=== PATIENT | female | born 1940 | race African-American/Black ===

== ENCOUNTER 2018-03-10 11:16 | Day surgery (SDC) | payer OTHER, BC ==
[~2018-03-10] VITALS: Ht 175.3 cm; Wt 68.1 kg
[~2018-03-10 11:16] MED LIST: ALREX 0.2%100 DROP/5 BOTH EYES; ANTIVERT25 MG PO; APRESOLINE50 MG PO; ARANESP150 MCG/0. SC; ASPIR 8181 M1 PO; CELEXA20 MG PO; COLACE100 MG PO; COREG12.5 M1 PO; DITROPAN5 MG PO; ESSENTIAL OIL; FLONASE ALLERG9.9 ML BOTH NARES; ISOSORBIDE DINI20 MG PO; LASIX40 MG PO; LEVOXYL50 MCG PO; NEXIUM20 MG PO; PROCARDIA XL30 MG PO; ROCALTROL0.25 MCG PO; ZOCOR20 MG PO; ZYLOPRIM100 MG PO
[2018-03-10] MEDS ORDERED: VITAMIN D22000 UNIT PO (12:15)
[2018-03-10 12:21] VITALS: BP 140/71
[2018-03-10 15:37] VITALS: BP 153/75
== END 2018-03-10 16:00 | disposition home or self-care (01) ==
LOC: SDC 11:16
DX: H33.22 Serous retinal detachment, left eye (principal); I12.9 Hypertensive chronic kidney disease with stage 1 through stage 4 chronic kidney disease, or unspecified chronic kidney disease; N18.4 Chronic kidney disease, stage 4 (severe); D63.1 Anemia in chronic kidney disease; Z87.891 Personal history of nicotine dependence; F41.9 Anxiety disorder, unspecified; Z79.82 Long term (current) use of aspirin; Z88.0 Allergy status to penicillin; Z88.8 Allergy status to other drugs, medicaments and biological substances; N25.81 Secondary hyperparathyroidism of renal origin
CPT/HCPCS: J0690; J0713